=== PATIENT | female | born 1970 | race Two or more races ===

== ENCOUNTER 2021-03-06 23:22 | Emergency (ER) | payer OTHER ==
[~2021-03-06] VITALS: Ht 162.6 cm; Wt 83.9 kg
[2021-03-07] MEDS ORDERED: ZITHROMAX500 MG (00:18)
[2021-03-07] MEDS ORDERED: TUSNEL LIQUID178 ML (00:19)
[2021-03-07] MEDS ORDERED: IVERMECTIN3 MG (00:19)
[2021-03-07] MEDS ORDERED: DECADRON4 MG (00:19)
[2021-03-07] MEDS ORDERED: ZITHROMAX500 MG PO (03:33)
[2021-03-07] MEDS ORDERED: IVERMECTIN3 MG PO (03:33)
[2021-03-07] MEDS ORDERED: DECADRON6 MG PO (03:33)
== END 2021-03-07 03:53 ==
LOC: ER 23:22
DX: U07.1 COVID-19 (principal); J12.82 Pneumonia due to coronavirus disease 2019; R05 Cough